=== PATIENT | male | born 1955 | race Caucasian/White ===

== ENCOUNTER 2020-02-11 16:57 | Emergency (ER) | payer BC, OTHER ==
--- NOTE | 2020-02-11 17:14 | EDM.PDOC ---
ED HPI GENERAL MEDICAL PROBLEM - General Chief Complaint: Head Injury Stated Complaint: FELL HIT HIS HEAD Time Seen by Provider: 02/11/20 17:05 Source of Information: Reports: Patient History Limitations: Reports: No Limitations - History of Present Illness INITIAL COMMENTS - FREE TEXT/NARRATIVE: 64 YO WM presents to ER after slip and fall on slick surface while attempting to close a barn door. Pt reports he fell forward striking his head above his right eye. Pt with a 5cm laceration above right eyebrow. Pt denies loss of consciousness, pt denies headache, no nausea/vomiting, no neck pain. Pt denies use of anticoagulation. GCS-15. Pt also reports some soreness to his right thigh. Pt reports he was able to drive himself to ER (1hr) without any difficulty. Pt alert and oriented x 4 and in NAD. Onset: Today Onset Date: 02/11/20 Onset Time: 16:00 Location: Reports: Head, Lower Extremity, Right Quality: Reports: Ache Severity: Mild Improves with: Reports: None Worsens with: Reports: None Associated Symptoms: Reports: No Other Symptoms - Related Data Allergies Allergy/AdvReac Type Severity Reaction Status Date / Time No Known Allergies Allergy Verified 04/06/17 12:01 Home Meds: Home Meds Multivitamin [Multivitamins] 1 tab PO DAILY 04/03/17 [History] Sildenafil [Viagra] 100 mg PO ASDIRECTED 04/03/17 [History] Past Medical History HEENT History: Reports: None Cardiovascular History: Reports: None Respiratory History: Reports: None Gastrointestinal History: Reports: Other (See Below) Other Gastrointestinal History: fm hx colon cancer. umbilical hernia Genitourinary History: Reports: Other (See Below) Other Genitourinary History: ED. Urine frequency Musculoskeletal History: Reports: None Neurological History: Reports: None Psychiatric History: Reports: None Endocrine/Metabolic History: Reports: None Hematologic History: Reports: None Immunologic History: Reports: None Oncologic (Cancer) History: Reports: None Dermatologic History: Reports: None - Past Surgical History GI Surgical History: Reports: Hernia Repair/Other ED ROS GENERAL - Review of Systems Review Of Systems: See Below Constitutional: Reports: No Symptoms HEENT: Reports: No Symptoms Respiratory: Reports: No Symptoms Cardiovascular: Reports: No Symptoms Endocrine: Reports: No Symptoms GI/Abdominal: Reports: No Symptoms : Reports: No Symptoms Musculoskeletal: Reports: Leg Pain, Muscle Pain Skin: Reports: Wound (5cm laceration above right eyebrow) Neurological: Reports: No Symptoms Psychiatric: Reports: No Symptoms Hematologic/Lymphatic: Reports: No Symptoms Immunologic: Reports: No Symptoms ED EXAM, HEAD INJURY - Physical Exam Exam: See Below Exam Limited By: No Limitations General Appearance: Alert, WD/WN, No Apparent Distress Head: Normocephalic, Facial Lacerations, Facial Swelling. No: Scalp Lacerations , Scalp Swelling, Scalp Abrasions, Scalp Ecchymosis, Scalp Hematoma, Scalp Tenderness, Sinus Tenderness, Facial Tenderness, Raccoon Eyes Nexus Criteria: No: Posterior, Midline Cervical Tenderness, Evidence of Intoxication, Altered Level of Consciousness, Focal Neurological Deficit, Painful Distraction Injuries Eyes: Bilateral Eye: PERRL Ears: Normal External Exam, Normal Canal, Hearing Grossly Normal, Normal TMs Nose: Normal Inspection, Normal Mucousa, No Blood Throat/Mouth: Normal Inspection, Normal Lips, Normal Teeth, Normal Gums, Normal Oropharynx, Normal Voice, No Airway Compromise Neck: Non-Tender, Full Range of Motion, Normal Alignment, Normal Inspection Respiratory: No Respiratory Distress, Lungs Clear, Normal Breath Sounds, No Accessory Muscle Use, Chest Non-Tender Cardiovascular: Normal Peripheral Pulses, Regular Rate, Rhythm, No Edema, No Gallop, No JVD, No Murmur, No Rub GI/Abdominal Exam: Normal Bowel Sounds, Soft, Non-Tender, No Organomegaly, No Distention, No Abnormal Bruit, No Mass Back Exam: Full Range of Motion, Normal Inspection, NT Extremities: Normal Inspection, Normal Range of Motion, Non-Tender, No Pedal Edema, Normal Capillary Refill 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 As Tested, No Motor/Sensory Deficits, Alert, Normal Mood/Affect, Oriented x 3 Skin: Normal Color, Warm/Dry - Kizzy Coma Score Best Eye Response (Kizzy): (4) Open Spontaneously Best Verbal Response (Kizzy): (5) Oriented Best Motor Response (Kizzy): (6) Obeys Commands ED LACERATION/WOUND & INDERJIT PROC - Laceration/Wound Repair Right Lower Forehead Lac/wound length in cm: 5 Appearance: Superficial Distal NVT: Neuro & Vascular Intact Anesthetic Type: Local Local Anesthesia - Lidocaine (Xylocaine): 1% Plain Local Anesthetic Volume: 5cc Skin Prep: Chlorhexidine (Hibiciens), Providone-Iodine (Betadine), Saline Exploration/Debridement/Repair: Wound Explored, In a Bloodless Field Closed with: Sutures Suture Size: 5-0 # of Sutures: 5 Sterile Dressing Applied: Nurse Tetanus Status Addressed: Yes Complications: No Course - Vital Signs Last Recorded V/S: Last Vital Signs Temp 37.0 C 02/11/20 17:00 Pulse 75 02/11/20 17:15 Resp 21 H 02/11/20 17:15 BP 170/96 H 02/11/20 17:15 Pulse Ox - Orders/Labs/Meds Orders: Active Orders 24 hr Category Date Time Status Femur Min 2V Rt [CR] Stat Exams 02/11/20 17:13 Ordered Pelvis 1V or 2V [CR] Stat Exams 02/11/20 17:13 Ordered Meds: Medications Discontinued Medications Generic Name Dose Route Start Last Admin Trade Name Frederick PRN Reason Stop Dose Admin Lidocaine HCl Confirm 02/11/20 17:23 Xylocaine 1% Administered 02/11/20 17:24 Dose 20 ml .ROUTE .STK-MED ONE Departure - Departure Time of Disposition: 17:59 Disposition: Home, Self-Care 01 Condition: Good Clinical Impression: Head injury, Facial laceration, Contusion of right thigh - Discharge Information Instructions: Facial Laceration, [id number], Head Injury, Adult, [id number] , Hematoma, [id number] Referrals: Venkata Ward PA-C [Primary Care Provider] - Forms: ED Department Discharge Additional Instructions: 1. discharge home 2. head injury precautions given- CAT scan is currently not working- recommend [facility] for further evaluation if neuro compromised 3. wound care instructions given- suture removal 5-7 days 4. return to ER for worsening symptoms 5. ice to thigh- OTC pain medication as needed Sepsis Event Note - Focused Exam Vital Signs: Vital Signs Temp Pulse Resp BP 02/11/20 17:15 75 21 H 170/96 H 02/11/20 17:00 37.0 C 85 22 H 177/107 H Date Exam was Performed: 02/11/20 Time Exam was Performed: 17:47 - My Orders Last 24 Hours: My Active Orders 02/11/20 17:13 Femur Min 2V Rt [CR] Stat Pelvis 1V or 2V [CR] Stat - Assessment/Plan Last 24 Hours: My Active Orders 02/11/20 17:13 Femur Min 2V Rt [CR] Stat Pelvis 1V or 2V [CR] Stat Assessment:: 1. head injury 2. right thigh contusion 3. 5cm laceration to right eyebrow 4. hypertension- recommended further evaluation as an outpatient. Not on medication currently 5. fall Plan: 1. discharge home 2. head injury precautions given- CAT scan is currently not working- recommend [facility] for further evaluation if neuro compromised 3. wound care instructions given- suture removal 5-7 days 4. return to ER for worsening symptoms 5. ice to thigh- OTC pain medication as needed
[2020-02-11 17:40] VITALS: PULSE 75
[2020-02-11] MEDS: Lidocaine 1% 20 ML MDV INJECT ONE (17:50)
[2020-02-11] MEDS: Lidocaine 1% 20 ML MDV ONE (17:51)
[2020-02-11 17:54] VITALS: BP 160/90
[2020-02-11] MEDS: Acetaminophen/HYDROcodone 325-10 MG Tab PO ONE (18:01)
--- NOTE | 2020-02-12 11:19 | CR ---
[id number] RAD/RAD Pelvis 1-2V; [id number] RAD/RAD Femur Right 2V Exam: RAD Femur Right 2V, RAD Pelvis 1-2V Indication:FALL. Comparison: No prior imaging for comparison. Discussion: No fracture or dislocation. No AVN or erosive changes. Impression: No acute findings. Santi Harris MD 02/12/20 [id number] Thank you for allowing us to participate in the care of your patient.
== END 2020-02-11 18:10 | disposition home or self-care (01) ==
LOC: KA.ED 16:57
DX: S01.81XA Laceration without foreign body of other part of head, initial encounter (principal); S70.11XA Contusion of right thigh, initial encounter; W01.198A Fall on same level from slipping, tripping and stumbling with subsequent striking against other object, initial encounter
CPT/HCPCS: 12013; 72170; 99283-25; A9270-GY; J2001